=== PATIENT | female | born 1975 | race Caucasian/White ===

== ENCOUNTER 2021-03-26 12:13 | Inpatient (IN) | payer BC ==
[~2021-03-26 12:13] MED LIST: Enoxaparin 40 MG/0.4 ML Syringe SUBCUT SCH
[2021-03-26 12:58] LABS: CHLORIDE,CL 101 mEq/L (98-106); SODIUM,NA 137 mEq/L (136-145)
--- NOTE | 2021-03-26 13:13 | EDM.PDOC ---
ED HPI GENERAL MEDICAL PROBLEM - General Chief Complaint: Respiratory Problem Stated Complaint: short of breath,COVID + Time Seen by Provider: 03/26/21 12:25 Source of Information: Reports: Patient History Limitations: Reports: No Limitations - History of Present Illness INITIAL COMMENTS - FREE TEXT/NARRATIVE: Tory is a 45 year old female who presents to ER with complaints of increased shortness of breath. Was diagnosed with Covid on the , has been having symptoms since the . Initially had more GI symptoms, many days of diarrhea. Now has developed increased shortness of breath, cough. Cough has been productive at times, yellowish sputum. Has had consistent fevers now for over a week. Was tested on the , advised to push fluids, lie prone and has been taking tylenol and ibuprofen for fever or discomfort. Over the last 24 hours, patient has felt more pressure to her chest, more short of breath. Does have body aches. Has lost her taste and smell. Not able to eat or drink much due to nausea. Has been taking zofran for that with some relief. Onset: Gradual Duration: Day(s):, Getting Worse Location: Reports: Chest, Generalized Quality: Reports: Ache Severity: Moderate Improves with: Reports: None Associated Symptoms: Reports: Cough, cough w sputum, Fever/Chills, Headaches, Loss of Appetite, Malaise, Nausea/Vomiting, Shortness of Breath, Weakness. 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, NSAIDS Back Pain Score (Numeric/FACES): 6 - Related Data Allergies Allergy/AdvReac Type Severity Reaction Status Date / Time Penicillins Allergy Cannot Verified 03/26/21 12:38 Remember Home Meds: Home Meds PARoxetine HCL [Paroxetine HCl] 20 mg PO DAILY 03/26/21 [History] Pantoprazole Sodium [Protonix] 40 mg PO DAILY 03/26/21 [History] ondansetron HCL [Ondansetron HCl] 8 mg PO Q6H PRN 03/26/21 [History] Past Medical History Gastrointestinal History: Reports: GERD BUSINESS SUPPORT LIAISON History: Reports: , Other (See Below) Other BUSINESS SUPPORT LIAISON History: ovarian cyst Musculoskeletal History: Reports: Arthritis, RA Psychiatric History: Reports: Anxiety - Past Surgical History GI Surgical History: Reports: Cholecystectomy Social & Family History - Tobacco Use Tobacco Use Status *Q: Unknown Ever Used Tobacco ED ROS GENERAL - Review of Systems Review Of Systems: See Below Constitutional: Reports: Fever, Chills, Malaise, Weakness, Fatigue, Decreased Appetite HEENT: Reports: Rhinitis. Denies: Ear Pain, Sinus Problem, Throat Pain, Vertigo Respiratory: Reports: Shortness of Breath, Cough Cardiovascular: Denies: Chest Pain, Edema, Lightheadedness Endocrine: Reports: Fatigue GI/Abdominal: Reports: Diarrhea, Nausea, Vomiting. Denies: Abdominal Pain : Reports: No Symptoms Musculoskeletal: Reports: No Symptoms Skin: Reports: No Symptoms Neurological: Reports: Headache, Weakness ED EXAM, GENERAL - Physical Exam Exam: See Below General Appearance: Alert, WD/WN, Mild Distress Ears: Normal External Exam, Normal TMs Nose: Normal Inspection, Normal Mucosa, No Blood Throat/Mouth: Normal Inspection, Normal Oropharynx Head: Normocephalic Neck: Normal Inspection, Supple, Non-Tender Respiratory/Chest: Decreased Breath Sounds Cardiovascular: Regular Rate, Rhythm GI/Abdominal: Normal Bowel Sounds, Soft, Non-Tender Extremities: Normal Inspection, No Pedal Edema Neurological: Alert, Oriented Skin Exam: Warm, Dry Course - Vital Signs Last Recorded V/S: Last Vital Signs Temp 99.9 F 03/26/21 14:00 Pulse 83 03/26/21 14:00 Resp 20 03/26/21 14:00 BP 114/69 03/26/21 14:00 Pulse Ox 96 03/26/21 14:00 - Orders/Labs/Meds Orders: Active Orders 24 hr Category Date Time Status Chest 2V [CR] Stat Exams 03/26/21 12:09 Taken Medication Orders Acetaminophen (Acetaminophen 325 Mg Tab) 650 mg PO Q4H PRN PRN Reason: Pain (Mild 1-3)/fever Last Admin: 03/26/21 14:17 Dose: 650 mg Documented by: JONATHAN Enoxaparin Sodium (Enoxaparin 40 Mg/0.4 Ml Syringe) 40 mg SUBCUT Q24H [facility] Remdesivir 200 mg/ Sodium (Chloride) 250 mls @ 250 mls/hr IV ONETIME ONE Stop: 03/26/21 16:59 Last Admin: 03/26/21 16:15 Dose: 250 mls/hr Documented by: RACHNA Remdesivir 100 mg/ Sodium (Chloride) 100 mls @ 100 mls/hr IV Q24H [facility] Stop: 03/30/21 16:59 Ibuprofen (Ibuprofen 200 Mg Tab) 400 mg PO Q6H PRN PRN Reason: Pain (mild 1-3) Ondansetron HCl (Ondansetron 4 Mg/2 Ml Sdv) 4 mg IV Q4H PRN PRN Reason: Nausea/Vomiting Ondansetron HCl (Ondansetron 4 Mg Tab.Dis) 4 mg PO Q4H PRN PRN Reason: nausea, able to take PO Pantoprazole Sodium (Pantoprazole 40 Mg Tab.Cr) 40 mg PO ACBREAKFAST [facility] Paroxetine HCl (Paroxetine 20 Mg Tab) 20 mg PO DAILY [facility] Sodium Chloride (Sodium Chloride 0.9% 10 Ml Syringe) 10 ml FLUSH ASDIRECTED PRN PRN Reason: Keep Vein Open Temazepam (Temazepam 15 Mg Cap) 15 mg PO BEDTIME PRN PRN Reason: Sleep Labs: Laboratory Tests 03/26/21 03/26/21 03/26/21 Range/Units 12:09 12:09 12:10 WBC (4.0-11.0) 10^3/uL RBC (4.00-5.50) x10^6/uL Hgb (12.0-16.0) g/dL Hct (37.0-47.0) % MCV (83.0-97.0) fL MCH (27.0-32.0) pg MCHC (32.0-36.0) g/dL RDW Coeff of Meme (11.0-15.0) % Plt Count (150-400) 10^3/uL Immature Gran % (Auto) (0.0-4.9) % Neut % (Auto) (41-71) % Lymph % (Auto) (24-44) % [place] % (Auto) (0-10) % Eos % (Auto) (0-6) % Baso % (Auto) (0-1) % Neut # (Auto) (1.80-8.00) x10^3/uL Lymph # (Auto) (0.60-5.00) 10^3/uL [place] # (Auto) (0.00-1.50) 10^3/uL Eos # (Auto) (0.00-1.50) 10^3/uL Baso # (Auto) (0.00-0.50) 10^3/uL Immature Gran # (Auto) (0.00-0.49) 10^3/uL D-Dimer, Quantitative 1.03 H (0.00-0.50) Sodium 137 (136-145) mEq/L Potassium 3.5 (3.5-5.0) mEq/L Chloride 101 (98-106) mEq/L Carbon Dioxide 28 (21-32) mmol/L BUN 9 (7-18) mg/dL Creatinine 0.9 (0.6-1.0) mg/dL Est Cr Clr Drug Dosing 64.61 mL/min Estimated GFR (MDRD) > 60 (>=60) mL/min Glucose 119 H (75-99) mg/dL Lactic Acid 0.8 (0.4-2.0) mmol/L Calcium 8.1 L (8.4-10.1) mg/dL Magnesium 2.1 (1.8-2.4) mg/dL Total Bilirubin 0.3 (0.0-1.0) mg/dL AST 42 H (15-37) U/L ALT 29 (12-78) U/L Alkaline Phosphatase 84 (46-116) U/L Creatine Kinase 43 (21-215) U/L Troponin I High Sens 5.3 (<=51) pg/mL C-Reactive Protein 12.0 H (0.2-0.8) mg/dL NT-Pro-B Natriuret Pep 80 (0-1000) pg/mL Total Protein 7.1 (6.4-8.2) g/dL Albumin 3.1 L (3.4-5.0) g/dL 03/26/21 Range/Units 12:20 WBC 4.3 (4.0-11.0) 10^3/uL RBC 4.08 (4.00-5.50) x10^6/uL Hgb 10.2 L (12.0-16.0) g/dL Hct 31.9 L (37.0-47.0) % MCV 78.2 L (83.0-97.0) fL MCH 25.0 L (27.0-32.0) pg MCHC 32.0 (32.0-36.0) g/dL RDW Coeff of Meme 15.0 (11.0-15.0) % Plt Count 170 (150-400) 10^3/uL Immature Gran % (Auto) 0.2 (0.0-4.9) % Neut % (Auto) 75.0 H (41-71) % Lymph % (Auto) 20.0 L (24-44) % [place] % (Auto) 4.4 (0-10) % Eos % (Auto) 0.2 (0-6) % Baso % (Auto) 0.2 (0-1) % Neut # (Auto) 3.25 (1.80-8.00) x10^3/uL Lymph # (Auto) 0.87 (0.60-5.00) 10^3/uL [place] # (Auto) 0.19 (0.00-1.50) 10^3/uL Eos # (Auto) 0.01 (0.00-1.50) 10^3/uL Baso # (Auto) 0.01 (0.00-0.50) 10^3/uL Immature Gran # (Auto) 0.01 (0.00-0.49) 10^3/uL D-Dimer, Quantitative (0.00-0.50) Sodium (136-145) mEq/L Potassium (3.5-5.0) mEq/L Chloride (98-106) mEq/L Carbon Dioxide (21-32) mmol/L BUN (7-18) mg/dL Creatinine (0.6-1.0) mg/dL Est Cr Clr Drug Dosing mL/min Estimated GFR (MDRD) (>=60) mL/min Glucose (75-99) mg/dL Lactic Acid (0.4-2.0) mmol/L Calcium (8.4-10.1) mg/dL Magnesium (1.8-2.4) mg/dL Total Bilirubin (0.0-1.0) mg/dL AST (15-37) U/L ALT (12-78) U/L Alkaline Phosphatase (46-116) U/L Creatine Kinase (21-215) U/L Troponin I High Sens (<=51) pg/mL C-Reactive Protein (0.2-0.8) mg/dL NT-Pro-B Natriuret Pep (0-1000) pg/mL Total Protein (6.4-8.2) g/dL Albumin (3.4-5.0) g/dL Meds: Medications Generic Name Dose Route Start Last Admin Trade Name Freq PRN Reason Stop Dose Admin Acetaminophen 650 mg 03/26/21 13:43 03/26/21 14:17 Acetaminophen 325 Mg Tab PO 650 mg Q4H PRN Administration Pain (Mild 1-3)/fever Enoxaparin Sodium 40 mg 03/26/21 20:00 Enoxaparin 40 Mg/0.4 Ml Syringe SUBCUT Q24H [facility] Remdesivir 200 mg/ Sodium 250 mls @ 250 mls/hr 03/26/21 16:00 03/26/21 16:15 Chloride IV 03/26/21 16:59 250 mls/hr ONETIME ONE Administration Remdesivir 100 mg/ Sodium 100 mls @ 100 mls/hr 03/27/21 16:00 Chloride IV 03/30/21 16:59 Q24H [facility] Ibuprofen 400 mg 03/26/21 13:43 Ibuprofen 200 Mg Tab PO Q6H PRN Pain (mild 1-3) Ondansetron HCl 4 mg 03/26/21 13:43 Ondansetron 4 Mg/2 Ml Sdv IV Q4H PRN Nausea/Vomiting Ondansetron HCl 4 mg 03/26/21 13:43 Ondansetron 4 Mg Tab.Dis PO Q4H PRN nausea, able to take PO Pantoprazole Sodium 40 mg 03/27/21 07:00 Pantoprazole 40 Mg Tab.Cr PO ACBREAKFAST [facility] Paroxetine HCl 20 mg 03/27/21 08:00 Paroxetine 20 Mg Tab PO DAILY [facility] Sodium Chloride 10 ml 03/26/21 13:43 Sodium Chloride 0.9% 10 Ml Syringe FLUSH ASDIRECTED PRN Keep Vein Open Temazepam 15 mg 03/26/21 13:43 Temazepam 15 Mg Cap PO BEDTIME PRN Sleep Discontinued Medications Generic Name Dose Route Start Last Admin Trade Name Freq PRN Reason Stop Dose Admin Enoxaparin Sodium 40 mg 03/26/21 08:00 03/26/21 14:56 Enoxaparin 40 Mg/0.4 Ml Syringe SUBCUT Not Given Q24H [facility] - Re-Assessments/Exams Free Text/Narrative Re-Assessment/Exam: 03/26/21 Patient labs show CRP of 12. D-Dimer of 1.02. Other labs essentially unremarkable. Chest xray shows bilateral infiltrates. Due to hypoxia, will admit. Oxygen. Start Remdesivir. Departure - Departure Time of Disposition: 13:07 Disposition: Admitted As Inpatient 65 Condition: Fair Clinical Impression: Viral pneumonia, COVID-19 - Discharge Information *PRESCRIPTION DRUG MONITORING PROGRAM REVIEWED*: No *COPY OF PRESCRIPTION DRUG MONITORING REPORT IN PATIENT KECIA: No Sepsis Event Note (ED) - Evaluation Sepsis Screening Result: No Definite Risk - Focused Exam Vital Signs: Vital Signs Temp Pulse Resp BP Pulse Ox 03/26/21 12:40 99.8 F 88 17 117/72 97 03/26/21 12:30 20 95 03/26/21 12:20 20 97 03/26/21 12:15 99.6 F 91 20 135/71 89 L - Problem List & Annotations (1) COVID-19 SNOMED Code(s): 358676348 Code(s): U07.1 - COVID-19 Status: Acute Priority: High Current Visit: No (2) Viral pneumonia SNOMED Code(s): 70553227 Code(s): J12.9 - VIRAL PNEUMONIA, UNSPECIFIED Status: Acute Priority: High Current Visit: No - Problem List Review Problem List Initiated/Reviewed/Updated: Yes - My Orders Last 24 Hours: My Active Orders 03/26/21 12:09 Chest 2V [CR] Stat - Assessment/Plan Admission H&P: Please use this note as an admission H&P Last 24 Hours: My Active Orders 03/26/21 12:09 Chest 2V [CR] Stat Assessment:: Viral Pneumonia Covid 19 Hypoxia Plan: Admit inpatient. Start Remdesivir. Oxygen. Repeat labs in am.
[2021-03-26] MEDS ORDERED: Ondansetron 4 MG/2 ML SDV IV PRN (13:43)
[2021-03-26] MEDS ORDERED: Sodium Chloride 0.9% 10 ML Syringe FLUSH PRN (13:43)
[2021-03-26] MEDS ORDERED: Temazepam 15 MG Cap PO PRN (13:43)
[2021-03-26] MEDS: Acetaminophen 325 MG Tab PO PRN ×2 (14:17→19:43)
[2021-03-26] MEDS ORDERED: REMDESIVIR 200 MG in Sodium Chloride 0.9% 250 ML IV ONE (16:00)
[2021-03-26] MEDS: Enoxaparin 40 MG/0.4 ML Syringe SUBCUT SCH (19:43)
[2021-03-27] MEDS: Acetaminophen 325 MG Tab PO PRN (01:06)
[2021-03-27 07:31] LABS: CHLORIDE,CL 103 mEq/L (98-106); SODIUM,NA 139 mEq/L (136-145)
[2021-03-27] MEDS: Pantoprazole 40 MG Tab.CR PO SCH (07:44)
[2021-03-27] MEDS: PARoxetine 20 MG Tab PO SCH (07:44)
[2021-03-27] MEDS: Ondansetron 4 MG Tab.DIS PO PRN ×2 (10:21→16:24)
[2021-03-27] MEDS: Ibuprofen 200 MG Tab PO PRN (10:22)
--- NOTE | 2021-03-27 14:55 | PN ---
DATE: 03/26/2021 S: Mrs. Vieira is a 45-year-old female admitted by Pamela Alfaro for COVID pneumonia. Sounds like she has been symptomatic for approximately a week, was diagnosed on the with a positive test and just has progressively had more cough and shortness of breath. She is coughing up productive sputum, with requirement of oxygen now with sat around 87% on room air. She did have a CRP of 12 on admit and minimally elevated D-dimer, and her x-ray did confirm bilateral infiltrates. She was put on oxygen, started on remdesivir. She is having some nausea related to that, but otherwise is stable. She has spiked some temps, with T-max of 101.2. O: GENERAL: She is lying in bed. She does not appear in any obvious distress. She is on 2 L nasal cannula. HEENT: Grossly unremarkable. NECK: Neck veins are nondistended. LUNGS: Lung sounds are rhonchus, but overall pretty adequate air movement. There is no expiratory wheezing heard. CARDIAC: Tones are regular. ABDOMEN: Soft. No peripheral edema seen. ASSESSMENT: COVID PNEUMONIA. P: We will continue with daily remdesivir and appropriate daily lab work to monitor this. The patient is having some nausea and she does have order for Zofran. No other changes at this time. BHARTI/STEPHANIE /[id number]
[2021-03-27] MEDS: REMDESIVIR 100 MG in Sodium Chloride 0.9% 100 ML IV SCH (16:14)
[2021-03-27] MEDS: Enoxaparin 40 MG/0.4 ML Syringe SUBCUT SCH (19:33)
[2021-03-28] MEDS: Pantoprazole 40 MG Tab.CR PO SCH (06:23)
[2021-03-28] MEDS: PARoxetine 20 MG Tab PO SCH (07:32)
[2021-03-28 07:42] LABS: CHLORIDE,CL 103 mEq/L (98-106); SODIUM,NA 140 mEq/L (136-145)
[2021-03-28] MEDS: Ondansetron 4 MG Tab.DIS PO PRN ×4 (07:43→21:57)
--- NOTE | 2021-03-28 12:11 | PN ---
DATE: 03/28/2021 S: Tory is feeling a little bit better. She is still getting a little upset stomach when she tries to eat. Feels a lot of congestion, still coughing, but denies any chest pain. Her shortness of breath has improved slightly. She continues to have complaints of just being overall fatigued. Her sats have improved where she was turned down to 1 L. She is around 95% to 97%. She should be able to get off oxygen today. She has not spiked a temp in over a day. O: GENERAL: She is pleasant and cooperative. NECK: Her neck veins are flat. LUNGS: Her lung sounds are still raspy with some expiratory wheeze, mostly in the apices. Overall adequate air movement. CARDIAC: Tones are regular. ABDOMEN: Soft and nontender. EXTREMITIES: Without edema. LABORATORY DATA: Lab work today shows stable CBC. Her liver functions are normal. CRP is down from 15 yesterday to 10 today. ASSESSMENT: CORONAVIRUS DISEASE PNEUMONIA. P: I will attempt to wean O2. Hopefully, the patient can advance her diet steadily and she might be stable for discharge by tomorrow. BHARTI/STEPHANIE /[id number]
[2021-03-28] MEDS: REMDESIVIR 100 MG in Sodium Chloride 0.9% 100 ML IV SCH (15:41)
[2021-03-28] MEDS: Enoxaparin 40 MG/0.4 ML Syringe SUBCUT SCH (19:45)
[2021-03-29 07:32] LABS: CHLORIDE,CL 102 mEq/L (98-106); SODIUM,NA 142 mEq/L (136-145)
[2021-03-29] MEDS: Pantoprazole 40 MG Tab.CR PO SCH (07:47)
[2021-03-29] MEDS: Ondansetron 4 MG Tab.DIS PO PRN ×2 (07:47→17:54)
[2021-03-29] MEDS: PARoxetine 20 MG Tab PO SCH (07:47)
--- NOTE | 2021-03-29 11:27 | PCM.PN ---
- General Info Date of Service: 03/29/21 Admission Dx/Problem (Free Text): Covid 19 Viral Pneumonia Subjective Update: Patient admits that she is feeling better than on admit. Nurses report that she is hesitant to be up in chair and with ambulation. Patient states gets very lightheaded and short of breath when up. Oxygen sats do run around 92% on room air when at rest but patient admits feels more comfortable with oxygen on. Has not been lying prone. Not eating, states has no appetite. Tried a few bites and then does not feel good. has been getting Zofran. Taking fluids well. No fever for over 24 hours. Functional Status: Reports: Pain Controlled. Denies: Tolerating Diet, Ambulating - Review of Systems General: Reports: Weakness, Fatigue, Malaise. Denies: Fever HEENT: Denies: Ear Pain, Sinus Congestion, Rhinitis Pulmonary: Reports: Shortness of Breath, Cough Cardiovascular: Reports: Lightheadedness. Denies: Chest Pain, Edema Gastrointestinal: Reports: Decreased Appetite. Denies: Abdominal Pain, Nausea, Vomiting Genitourinary: Denies: Dysuria Musculoskeletal: Reports: No Symptoms Skin: Reports: No Symptoms Neurological: Reports: Weakness Psychiatric: Reports: No Symptoms - Patient Data Vitals - Most Recent: Last Vital Signs Temp 98.9 F 03/29/21 08:00 Pulse 72 03/29/21 08:00 Resp 20 03/29/21 08:00 BP 132/73 03/29/21 08:00 Pulse Ox 92 L 03/29/21 08:00 Weight - Most Recent: 224 lb 12.8 oz Lab Results Last 24 Hours: Laboratory Results - last 24 hr 03/29/21 03/29/21 Range/Units 07:05 07:05 WBC 5.0 (4.0-11.0) 10^3/uL RBC 3.96 L (4.00-5.50) x10^6/uL Hgb 9.9 L (12.0-16.0) g/dL Hct 31.3 L (37.0-47.0) % MCV 79.0 L (83.0-97.0) fL MCH 25.0 L (27.0-32.0) pg MCHC 31.6 L (32.0-36.0) g/dL RDW Coeff of Meme 14.9 (11.0-15.0) % Plt Count 239 (150-400) 10^3/uL Add Manual Diff Yes Neutrophils % (Manual) 59 (35-85) % Lymphocytes % (Manual) 32 (21-55) % Monocytes % (Manual) 8 (2-12) % Eosinophils % (Manual) 1 (0-5) % Absolute Neutrophils 2.95 (1.80-7.00) 10^3/uL Lymphocytes # (Manual) 1.60 (1.00-4.80) 10^3/uL Monocytes # (Manual) 0.40 (0.00-0.80) 10^3/uL Eosinophils # (Manual) 0.05 (0.00-0.45) 10^3/uL Sodium 142 (136-145) mEq/L Potassium 3.9 (3.5-5.0) mEq/L Chloride 102 (98-106) mEq/L Carbon Dioxide 29 (21-32) mmol/L BUN 10 (7-18) mg/dL Creatinine 0.8 (0.6-1.0) mg/dL Est Cr Clr Drug Dosing 72.69 mL/min Estimated GFR (MDRD) > 60 (>=60) mL/min Glucose 84 (75-99) mg/dL Calcium 8.2 L (8.4-10.1) mg/dL Total Bilirubin 0.3 (0.0-1.0) mg/dL Direct Bilirubin 0.2 (0.0-0.3) mg/dL AST 62 H (15-37) U/L ALT 47 (12-78) U/L Alkaline Phosphatase 71 (46-116) U/L C-Reactive Protein 5.3 H (0.2-0.8) mg/dL Total Protein 6.7 (6.4-8.2) g/dL Albumin 2.9 L (3.4-5.0) g/dL Med Orders - Current: Current Medications Acetaminophen (Acetaminophen 325 Mg Tab) 650 mg PO Q4H PRN PRN Reason: Pain (Mild 1-3)/fever Last Admin: 03/27/21 01:06 Dose: 650 mg Documented by: Enoxaparin Sodium (Enoxaparin 40 Mg/0.4 Ml Syringe) 40 mg SUBCUT Q24H [facility] Last Admin: 03/28/21 19:45 Dose: 40 mg Documented by: Remdesivir 100 mg/ Sodium (Chloride) 100 mls @ 100 mls/hr IV Q24H [facility] Stop: 03/30/21 16:59 Last Admin: 03/28/21 15:41 Dose: 100 mls/hr Documented by: Ibuprofen (Ibuprofen 200 Mg Tab) 400 mg PO Q6H PRN PRN Reason: Pain (mild 1-3) Last Admin: 03/27/21 10:22 Dose: 400 mg Documented by: Ondansetron HCl (Ondansetron 4 Mg/2 Ml Sdv) 4 mg IV Q4H PRN PRN Reason: Nausea/Vomiting Last Admin: 03/27/21 01:06 Dose: 4 mg Documented by: Ondansetron HCl (Ondansetron 4 Mg Tab.Dis) 4 mg PO Q4H PRN PRN Reason: nausea, able to take PO Last Admin: 03/29/21 07:47 Dose: 4 mg Documented by: Pantoprazole Sodium (Pantoprazole 40 Mg Tab.Cr) 40 mg PO ACBREAKFAST [facility] Last Admin: 03/29/21 07:47 Dose: 40 mg Documented by: Paroxetine HCl (Paroxetine 20 Mg Tab) 20 mg PO DAILY [facility] Last Admin: 03/29/21 07:47 Dose: 20 mg Documented by: Sodium Chloride (Sodium Chloride 0.9% 10 Ml Syringe) 10 ml FLUSH ASDIRECTED PRN PRN Reason: Keep Vein Open Temazepam (Temazepam 15 Mg Cap) 15 mg PO BEDTIME PRN PRN Reason: Sleep Discontinued Medications Enoxaparin Sodium (Enoxaparin 40 Mg/0.4 Ml Syringe) 40 mg SUBCUT Q24H [facility] Last Admin: 03/26/21 14:56 Dose: Not Given Documented by: Remdesivir 200 mg/ Sodium (Chloride) 250 mls @ 250 mls/hr IV ONETIME ONE Stop: 03/26/21 16:59 Last Admin: 03/26/21 16:15 Dose: 250 mls/hr Documented by: - Exam General: Alert, Oriented, Cooperative HEENT: Mucous Membr. Moist/[place] Neck: Supple Lungs: Crackles (RLL) Cardiovascular: Regular Rate, Regular Rhythm GI/Abdominal Exam: Normal Bowel Sounds, Soft, Non-Tender Extremities: Normal Inspection, No Pedal Edema Skin: Warm, Dry Neurological: No New Focal Deficit - Patient Data Lab Results Last 24 hrs: Laboratory Results - last 24 hr 03/29/21 03/29/21 Range/Units 07:05 07:05 WBC 5.0 (4.0-11.0) 10^3/uL RBC 3.96 L (4.00-5.50) x10^6/uL Hgb 9.9 L (12.0-16.0) g/dL Hct 31.3 L (37.0-47.0) % MCV 79.0 L (83.0-97.0) fL MCH 25.0 L (27.0-32.0) pg MCHC 31.6 L (32.0-36.0) g/dL RDW Coeff of Meme 14.9 (11.0-15.0) % Plt Count 239 (150-400) 10^3/uL Add Manual Diff Yes Neutrophils % (Manual) 59 (35-85) % Lymphocytes % (Manual) 32 (21-55) % Monocytes % (Manual) 8 (2-12) % Eosinophils % (Manual) 1 (0-5) % Absolute Neutrophils 2.95 (1.80-7.00) 10^3/uL Lymphocytes # (Manual) 1.60 (1.00-4.80) 10^3/uL Monocytes # (Manual) 0.40 (0.00-0.80) 10^3/uL Eosinophils # (Manual) 0.05 (0.00-0.45) 10^3/uL Sodium 142 (136-145) mEq/L Potassium 3.9 (3.5-5.0) mEq/L Chloride 102 (98-106) mEq/L Carbon Dioxide 29 (21-32) mmol/L BUN 10 (7-18) mg/dL Creatinine 0.8 (0.6-1.0) mg/dL Est Cr Clr Drug Dosing 72.69 mL/min Estimated GFR (MDRD) > 60 (>=60) mL/min Glucose 84 (75-99) mg/dL Calcium 8.2 L (8.4-10.1) mg/dL Total Bilirubin 0.3 (0.0-1.0) mg/dL Direct Bilirubin 0.2 (0.0-0.3) mg/dL AST 62 H (15-37) U/L ALT 47 (12-78) U/L Alkaline Phosphatase 71 (46-116) U/L C-Reactive Protein 5.3 H (0.2-0.8) mg/dL Total Protein 6.7 (6.4-8.2) g/dL Albumin 2.9 L (3.4-5.0) g/dL Result Diagrams: 03/29/21 07:05 03/29/21 07:05 Sepsis Event Note - Evaluation Sepsis Screening Result: No Definite Risk - Focused Exam Vital Signs: Vital Signs Temp Pulse Resp BP Pulse Ox 03/29/21 08:00 98.9 F 72 20 132/73 92 L 03/29/21 04:00 97.9 F 56 L 18 129/75 96 03/29/21 00:00 61 - Problem List & Annotations (1) COVID-19 SNOMED Code(s): 697462200 Code(s): U07.1 - COVID-19 Status: Acute Priority: High Current Visit: Yes (2) Viral pneumonia SNOMED Code(s): 61823434 Code(s): J12.9 - VIRAL PNEUMONIA, UNSPECIFIED Status: Acute Priority: High Current Visit: Yes - Problem List Review Problem List Initiated/Reviewed/Updated: Yes - My Orders Last 24 Hours: My Active Orders 03/29/21 07:05 CBC WITH AUTO DIFF [HEME] AM 03/30/21 05:11 BILIRUBIN DIRECT [CHEM] DAILY C-REACTIVE PROTEIN [CHEM] DAILY CBC WITH AUTO DIFF [HEME] AM COMPREHENSIVE METABOLIC PN,CMP [CHEM] DAILY - Assessment Assessment:: Covid 19 Pneumonia - Plan Plan:: Labs are improving, WBC normal. CRP down to 5. Much discussion held with patient in regards to being up and ambulating to increase strength and activity tolerance. Did walk with patient, gets lightheaded and sweaty after about 20 feet. Sats do drop to 87%. Advised needs to be up for short periods of time, can ambulate with oxygen to see if tolerates better. Advised the necessity of this to improve oxygenation, prevent lung collapse and worsening pneumonia. Try to eat short small meals to avoid nausea and increase strength. Will obtain repeat chest xray. Follow labs. Encourage ambulation, prone lying. Remdesivir IV through tomorrow. May need to be discharged home on oxygen.
[2021-03-29] MEDS: REMDESIVIR 100 MG in Sodium Chloride 0.9% 100 ML IV SCH (15:26)
[2021-03-29] MEDS: Acetaminophen 325 MG Tab PO PRN (16:48)
[2021-03-29] MEDS: Enoxaparin 40 MG/0.4 ML Syringe SUBCUT SCH (19:48)
[2021-03-29] MEDS: Ibuprofen 200 MG Tab PO PRN (22:10)
[2021-03-30] MEDS: PARoxetine 20 MG Tab PO SCH (07:24)
[2021-03-30] MEDS: Pantoprazole 40 MG Tab.CR PO SCH (07:24)
[2021-03-30 07:42] LABS: CHLORIDE,CL 102 mEq/L (98-106); SODIUM,NA 141 mEq/L (136-145)
[2021-03-30 08:50] VITALS: BP 140/70; PULSE 60
--- NOTE | 2021-03-30 12:08 | PCM.DCSUM1 ---
Discharge Summary - Hospital Course Free Text/Narrative:: Tory is a 45 year old female who presented to ER with complaints of increased shortness of breath. Was diagnosed with Covid on the , has been having symptoms since the . Initially had more GI symptoms, many days of diarrhea. Developed increased shortness of breath, cough. Cough has been productive at times, yellowish sputum. Has had consistent fevers now for over a week. Was tested on the , advised to push fluids, lie prone and has been taking tylenol and ibuprofen for fever or discomfort. Over the 24 hours prior to admission, patient had felt more pressure to her chest, more short of breath. Had body aches. Lost her taste and smell. Not able to eat or drink much due to nausea. Has been taking zofran for that with some relief. Labs noted normal WBC. CRP of 12. Chest xray shows bilateral infiltrates consistent with COVID. Admitted and started on Remdesivir. Hypoxic so requires oxygen. Diagnosis: Stroke: No Modified Claudia Scale: No Symptoms at All Modified [place] Scale Score: 0 - Discharge Data Discharge Date: 03/30/21 Discharge Disposition: Home, Self-Care 01 Condition: Fair - Referral to Home Health Primary Care Physician: Papito Fernandez MD - Discharge Diagnosis/Problem(s) (1) COVID-19 SNOMED Code(s): 952599267 ICD Code: U07.1 - COVID-19 Status: Acute Priority: High (2) Viral pneumonia SNOMED Code(s): 46744471 ICD Code: J12.9 - VIRAL PNEUMONIA, UNSPECIFIED Status: Acute Priority: High - Patient Summary/Data Complications: none Hospital Course: Tory is a 45 year old admitted for covid pneumonia. Is feeling better. Still gets weak and lightheaded at times when up ambulating but much improved since admission. Lung sounds diminished. Xray todays shows minimal i mprovement. Oxygen sats do vary over 90% at rest but continues to drop to 85% on room air with ambulation. Did receive 4 doses of Remdesivir, does not want the 5th dose today as she states "does not feel good after the infusion". Is eating somewhat better. Taking fluids well. Will discharge home on oxygen. Encouraged to continue to ambulate, lie prone, push fluids and increase oral intake. Follow up with Dr. Fernandez in one week. - Patient Instructions Diet: Usual Diet as Tolerated Activity: As Tolerated - Discharge Plan *PRESCRIPTION DRUG MONITORING PROGRAM REVIEWED*: No *COPY OF PRESCRIPTION DRUG MONITORING REPORT IN PATIENT KECIA: No Home Medications: Home Meds PARoxetine HCL [Paroxetine HCl] 20 mg PO DAILY 03/26/21 [History] Pantoprazole Sodium [Protonix] 40 mg PO DAILY 03/26/21 [History] ondansetron HCL [Ondansetron HCl] 8 mg PO Q6H PRN 03/26/21 [History] Oxygen Therapy Mode: Nasal Cannula Patient Handouts: COVID-19 Frequently Asked Questions, COVID-19, 10 Things You Can Do to Manage Your COVID-19 Symptoms at Home - [facility] [place][NOTE 3] (01/10/2021), Symptoms of COVID-19 - [facility] [place][NOTE 3] (08/19/2020) Forms: ED Department Discharge Referrals: Papito Fernandez MD [Primary Care Provider] - (Follow up in one week with Dr. Fernandez) - Discharge Summary/Plan Comment DC Time >30 min.: No Total # of Minutes for Discharge Time: 20 - General Info Date of Service: 03/30/21 Admission Dx/Problem (Free Text: Covid 19 Viral Pneumonia Functional Status: Reports: Pain Controlled, Tolerating Diet, Ambulating - Review of Systems General: Reports: Weakness, Fatigue, Malaise. Denies: Fever HEENT: Denies: Headaches, Sinus Congestion, Sore Throat, Rhinitis, Visual Changes Pulmonary: Reports: Shortness of Breath, Cough. Denies: Sputum Cardiovascular: Reports: Lightheadedness. Denies: Chest Pain, Edema Gastrointestinal: Reports: Diarrhea. Denies: Abdominal Pain, Nausea, Vomiting Genitourinary: Reports: No Symptoms Musculoskeletal: Reports: No Symptoms Skin: Reports: No Symptoms Neurological: Reports: Weakness - Patient Data Vitals - Most Recent: Last Vital Signs Temp 98 F 03/30/21 08:00 Pulse 60 03/30/21 08:00 Resp 20 03/30/21 08:00 BP 140/70 03/30/21 08:00 Pulse Ox 99 03/30/21 08:00 Weight - Most Recent: 224 lb 12.8 oz Lab Results - Last 24 hrs: Laboratory Results - last 24 hr 03/30/21 03/30/21 Range/Units 07:24 07:24 WBC 5.3 (4.0-11.0) 10^3/uL RBC 4.12 (4.00-5.50) x10^6/uL Hgb 10.2 L (12.0-16.0) g/dL Hct 32.4 L (37.0-47.0) % MCV 78.6 L (83.0-97.0) fL MCH 24.8 L (27.0-32.0) pg MCHC 31.5 L (32.0-36.0) g/dL RDW Coeff of Meme 14.6 (11.0-15.0) % Plt Count 278 (150-400) 10^3/uL Immature Gran % (Auto) 1.1 (0.0-4.9) % Neut % (Auto) 58.0 (41-71) % Lymph % (Auto) 28.9 (24-44) % [place] % (Auto) 9.3 (0-10) % Eos % (Auto) 2.1 (0-6) % Baso % (Auto) 0.6 (0-1) % Neut # (Auto) 3.05 (1.80-8.00) x10^3/uL Lymph # (Auto) 1.52 (0.60-5.00) 10^3/uL [place] # (Auto) 0.49 (0.00-1.50) 10^3/uL Eos # (Auto) 0.11 (0.00-1.50) 10^3/uL Baso # (Auto) 0.03 (0.00-0.50) 10^3/uL Immature Gran # (Auto) 0.06 (0.00-0.49) 10^3/uL Sodium 141 (136-145) mEq/L Potassium 4.3 (3.5-5.0) mEq/L Chloride 102 (98-106) mEq/L Carbon Dioxide 32 (21-32) mmol/L BUN 9 (7-18) mg/dL Creatinine 0.8 (0.6-1.0) mg/dL Est Cr Clr Drug Dosing 72.69 mL/min Estimated GFR (MDRD) > 60 (>=60) mL/min Glucose 96 (75-99) mg/dL Calcium 8.4 (8.4-10.1) mg/dL Total Bilirubin 0.4 (0.0-1.0) mg/dL Direct Bilirubin 0.2 (0.0-0.3) mg/dL AST 250 H (15-37) U/L ALT 148 H (12-78) U/L Alkaline Phosphatase 75 (46-116) U/L C-Reactive Protein 3.4 H (0.2-0.8) mg/dL Total Protein 6.8 (6.4-8.2) g/dL Albumin 2.9 L (3.4-5.0) g/dL Med Orders - Current: Current Medications Acetaminophen (Acetaminophen 325 Mg Tab) 650 mg PO Q4H PRN PRN Reason: Pain (Mild 1-3)/fever Last Admin: 03/29/21 16:48 Dose: 650 mg Documented by: Enoxaparin Sodium (Enoxaparin 40 Mg/0.4 Ml Syringe) 40 mg SUBCUT Q24H [facility] Last Admin: 03/29/21 19:48 Dose: 40 mg Documented by: Remdesivir 100 mg/ Sodium (Chloride) 100 mls @ 100 mls/hr IV Q24H [facility] Stop: 03/30/21 16:59 Last Admin: 03/29/21 15:26 Dose: 100 mls/hr Documented by: Ibuprofen (Ibuprofen 200 Mg Tab) 400 mg PO Q6H PRN PRN Reason: Pain (mild 1-3) Last Admin: 03/29/21 22:10 Dose: 400 mg Documented by: Ondansetron HCl (Ondansetron 4 Mg/2 Ml Sdv) 4 mg IV Q4H PRN PRN Reason: Nausea/Vomiting Last Admin: 03/27/21 01:06 Dose: 4 mg Documented by: Ondansetron HCl (Ondansetron 4 Mg Tab.Dis) 4 mg PO Q4H PRN PRN Reason: nausea, able to take PO Last Admin: 03/29/21 17:54 Dose: 4 mg Documented by: Pantoprazole Sodium (Pantoprazole 40 Mg Tab.Cr) 40 mg PO ACBREAKFAST [facility] Last Admin: 03/30/21 07:24 Dose: 40 mg Documented by: Paroxetine HCl (Paroxetine 20 Mg Tab) 20 mg PO DAILY [facility] Last Admin: 03/30/21 07:24 Dose: 20 mg Documented by: Sodium Chloride (Sodium Chloride 0.9% 10 Ml Syringe) 10 ml FLUSH ASDIRECTED PRN PRN Reason: Keep Vein Open Temazepam (Temazepam 15 Mg Cap) 15 mg PO BEDTIME PRN PRN Reason: Sleep Discontinued Medications Enoxaparin Sodium (Enoxaparin 40 Mg/0.4 Ml Syringe) 40 mg SUBCUT Q24H [facility] Last Admin: 03/26/21 14:56 Dose: Not Given Documented by: Remdesivir 200 mg/ Sodium (Chloride) 250 mls @ 250 mls/hr IV ONETIME ONE Stop: 03/26/21 16:59 Last Admin: 03/26/21 16:15 Dose: 250 mls/hr Documented by: - Exam Quality Assessment: Reports: Supplemental Oxygen General: Reports: Alert, Oriented HEENT: Reports: Mucous Membr. Moist/[place] Neck: Reports: Supple Lungs: Reports: Decreased Breath Sounds Cardiovascular: Reports: Regular Rate, Regular Rhythm GI/Abdominal Exam: Normal Bowel Sounds, Soft, Non-Tender Extremities: Normal Inspection, No Pedal Edema Skin: Reports: Warm, Dry Neurological: Reports: No New Focal Deficit
== END 2021-03-30 12:55 | disposition home or self-care (01) | DRG 137 ==
LOC: CC.ED 12:13 → CC.MS 13:17 → UNDOADMIN 13:34 → CC.MS 13:34
PROVIDERS: ADMIT Physician Assistant Medical; ATTEND Family Medicine
PROC: 8E0ZXY6 Isolation (ICD-10-PCS; principal; 2021-03-26)
PROC: XW033E5 Introduction of Remdesivir Anti-infective into Peripheral Vein, Percutaneous Approach, New Technology Group 5 (ICD-10-PCS; 2021-03-26)
DX: U07.1 COVID-19 (principal); J12.82 Pneumonia due to coronavirus disease 2019; K21.9 Gastro-esophageal reflux disease without esophagitis; Z88.0 Allergy status to penicillin
CPT/HCPCS: 36415; 71046; 80053; 82248; 82550; 83605; 83735; 83880; 84484; 85025; 85379; 86140; 94760; 99285-25; A9270-GY; J1650; J2405; J7050